=== PATIENT | female | born 1965 | race Two or more races ===

== ENCOUNTER 2016-12-09 20:53 | Emergency (ER) | payer SELFPAY ==
[~2016-12-09] VITALS: Ht 165.1 cm; Wt 97.8 kg
[2016-12-09] MEDS ORDERED: LISINOPRIL40 MG PO ×3 (22:12→23:09)
[2016-12-09] MEDS ORDERED: HYDROCHLOROTH12.5 M3 PO (22:13)
[2016-12-09] MEDS ORDERED: XANAX0.5 MG PO ×2 (22:14→23:05)
[2016-12-09 22:34] LABS: HEMATOCRIT 40.3 % (36.0-46.0); MCH 27.3 PG (29.0-34.0); MCV 82.8 FL (83-99); MEAN PLAT.VOLUME 10.5 uM^3 (9.5-12.4); PLATELET COUNT 288 K/uL (156-360); RBC DIS.WIDTH-CV 14.1 % (11.8-14.6); RBC DIS.WIDTH-SD 42.3 % (39-53); RED BLOOD COUNT 4.87 M/uL (3.80-5.20); WHITE BLOOD COUNT 10.5 K/uL (4.1-10.2)
[2016-12-09 22:45] LABS: CHLORIDE 105 mEq/L (99-109); POTASSIUM 3.5 mEq/L (3.7-5.4); SODIUM 138 mEq/L (136-147)
[2016-12-09 22:47] LABS: GLUCOSE 101 mg/dL (70-99)
[2016-12-09 22:48] LABS: ANION GAP 11 MEQ/L (2-14)
[2016-12-09 22:51] LABS: GFR ESTIMATE (CALCULATED) > 59 mL/min/
[2016-12-09 22:52] LABS: UREA NITROGEN (BUN) 13 mg/dL (9-23)
[2016-12-09 22:54] LABS: TROP-I INTERPRETATION NEGATIVE; TROPONIN-I < 0.01 ng/mL (0.0-0.30)
[2016-12-10 00:01] VITALS: BP 137/91
== END 2016-12-10 00:03 | disposition home or self-care (01) ==
LOC: EME 20:53
PROVIDERS: Emergency Medicine
DX: I10 Essential (primary) hypertension (principal); Z76.0 Encounter for issue of repeat prescription; E11.9 Type 2 diabetes mellitus without complications; F41.9 Anxiety disorder, unspecified; E78.5 Hyperlipidemia, unspecified; J45.909 Unspecified asthma, uncomplicated; K21.9 Gastro-esophageal reflux disease without esophagitis
CPT/HCPCS: 80048; 84484; 85027; 93005; 99281; 99285

== ENCOUNTER 2017-09-04 02:21 | Emergency (ER) | payer SELFPAY ==
[~2017-09-04] VITALS: Ht 154.9 cm; Wt 97.4 kg
[~2017-09-04 02:21] MED LIST: HYDROCHLOROTH12.5 M3 PO; LISINOPRIL40 MG PO; XANAX0.5 MG PO
[2017-09-04 02:26] VITALS: BP 130/83
[2017-09-04 03:46] LABS: HEMATOCRIT 38.5 % (36.0-46.0); MCH 27.3 PG (29.0-34.0); MCHC 32.2 G/DL (30.0-36.0); MCV 84.8 FL (83-99); PLATELET COUNT 223 K/uL (156-360); RBC DIS.WIDTH-CV 13.6 % (11.8-14.6); RED BLOOD COUNT 4.54 M/uL (3.80-5.20); WHITE BLOOD COUNT 8.9 K/uL (4.1-10.2)
[2017-09-04 03:57] LABS: CHLORIDE 105 mEq/L (99-109); SODIUM 140 mEq/L (136-147)
[2017-09-04 03:59] LABS: GLUCOSE 107 mg/dL (70-99)
[2017-09-04 04:00] LABS: ANION GAP 9 MEQ/L (2-14)
[2017-09-04 04:03] LABS: GFR ESTIMATE (CALCULATED) 46 mL/min/
[2017-09-04 04:04] LABS: UREA NITROGEN (BUN) 21 mg/dL (9-23)
== END 2017-09-04 04:23 | disposition left against medical advice (07) ==
LOC: EME 02:21
DX: R05 Cough (principal); R11.2 Nausea with vomiting, unspecified; J02.9 Acute pharyngitis, unspecified; R68.83 Chills (without fever); Z53.21 Procedure and treatment not carried out due to patient leaving prior to being seen by health care provider
CPT/HCPCS: 80048; 85027; 99281